=== PATIENT | male | born 1970 | race Two or more races ===

== ENCOUNTER 2023-10-23 14:41 | Emergency (ER) | payer OTHER ==
[~2023-10-23] VITALS: Ht 172.7 cm; Wt 106.6 kg
[2023-10-23 15:40] LABS: BASOPHILS # (AUTO) 0.1 K/uL (0.0-0.2); EOSINOPHILS # (AUTO) 0.2 K/uL (0.0-0.7); EOSINOPHILS % (AUTO) 1.9 % (0.0-6.0); HEMATOCRIT 41 % (39-51); HEMOGLOBIN 13.7 g/dL (13.5-17.5); LYMPHOCYTES % (AUTO) 32.7 % (20.0-44.0); MEAN CORPUSCULAR HEMOGLOBIN 27 PG (26.0-33.0); MEAN CORPUSCULAR HGB CONC 33 g/dl (31.0-36.0); MEAN CORPUSCULAR VOLUME 83 fL (80-96); MONOCYTES # (AUTO) 0.6 K/uL (0.1-1.30); MONOCYTES % (AUTO) 6.8 % (2.0-12.0); NEUTROPHILS # (AUTO) 5.3 K/uL (1.8-8.9); NEUTROPHILS % (AUTO) 57.6 % (43.0-81.0); PLATELET COUNT (AUTO) 220 K/uL (150-450); RED CELL DISTRIBUTION WIDTH 13.2 % (11.5-15.0); WHITE BLOOD COUNT (AUTO) 9.1 K/uL (4.3-11.0)
[2023-10-23 15:58] LABS: CALCIUM, SERUM 8.9 mg/dL (8.5-10.1); CARBON DIOXIDE 24 mmol/L (21-32); CHLORIDE 106 mmol/L (98-107); CREATININE 0.8 mg/dL (0.6-1.3); GLUCOSE 99 mg/dL (74-106); SODIUM SERUM 139 mmol/L (136-145); UREA NITROGEN, BLOOD 12 mg/dL (7-18)
[2023-10-23] MEDS ORDERED: ASPIRIN 81 MG TAB.CHEW ONE ×2 (16:07→16:18)
[2023-10-23] MEDS ORDERED: NITROGLYCERIN 0.4 MG/TAB BOTTLE ONE (16:07)
[2023-10-23] MEDS: ASPIRIN 81 MG TAB.CHEW PO ONE (16:08)
[2023-10-23 16:11] LABS: NT-PRO BNP 19 pg/mL (0-125)
[2023-10-23] MEDS: NITROGLYCERIN 0.4 MG/TAB BOTTLE SL ONE (16:20)
[2023-10-23 19:05] VITALS: BP 146/90; TEMP 98.1; O2SAT 97
== END 2023-10-23 19:06 | disposition home or self-care (01) ==
LOC: ER 15:02
DX: R07.9 Chest pain, unspecified (principal); I10 Essential (primary) hypertension
CPT/HCPCS: 99285; 71045; 93005; 85025; 80048; 36415; 84484; 83880; J7030